=== PATIENT | female | born 1970 | race Caucasian/White ===

== ENCOUNTER 2018-08-31 17:20 | Emergency (ER) | payer OTHER ==
[2018-08-31] MEDS ORDERED: FENTANYL CITRATE INJ/PF 100 MCG/2 ML AMPUL IV ONE (17:44)
--- NOTE | 2018-08-31 17:45 | ER Document Report ---
ED Medical Screen (RME) - General Stated Complaint: ABDOMINAL PAIN Time Seen by Provider: 08/31/18 17:36 Primary Care Provider: CHARITY SILVA MD [EMERITUS] - Follow up as needed Mode of Arrival: Medic Information source: Patient, Emergency Med Personnel Notes: Patient presents to the emergency department with complaints of right lower quad abdominal pain that started yesterday. Reports numerous vomiting. Patient severely tender right lower quad still has her appendix. EMS reports when they picked her up and put her on the stretcher she passed out for the pain. Has been treated with fentanyl. Reports patient has had numerous abdominal surgeries. I have greeted and performed a rapid initial assessment of this patient. A comprehensive ED assessment and evaluation of the patient, analysis of test results and completion of the medical decision making process will be conducted by additional ED providers. Dictation of this chart was performed using voice recognition software; t herefore, there may be some unintended grammatical errors. TRAVEL OUTSIDE OF THE [place] IN LAST 30 DAYS: No - Related Data Allergies/Adverse Reactions: pregabalin [From Lyrica] Allergy (Intermediate, Verified 10/26/15 10:29) Hives prochlorperazine edisylate [From Compazine] Allergy (Intermediate, Verified 10/26/15 10:29) anxiety, rash prochlorperazine maleate [From Compazine] Allergy (Intermediate, Verified 10/26/15 10:29) anxiety, rash metoclopramide [From Reglan] Adverse Reaction (Severe, Verified 10/26/15 10:29) makes head feel like it will explode bee stings Allergy (Severe, Uncoded 10/26/15 10:29) Difficulty breathing Flu vaccine Allergy (Severe, Uncoded 10/26/15 10:29) Severe Sickness Past Medical History - Past Medical History Cardiac Medical History: Denies: Hx Coronary Artery Disease, Hx Heart Attack, Hx Hypertension Pulmonary Medical History: Reports: Hx Pneumonia Denies: Hx Asthma, Hx Bronchitis, Hx COPD Neurological Medical History: Reports: Hx Migraine. 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 Denies: Hx Pancreatitis Musculoskeltal Medical History: Reports Hx Arthritis - OA, Reports Hx Fibromyalgia Psychiatric Medical History: Reports: Hx Attention Deficit Hyperactivity Disorder, Hx Bipolar Disorder, Hx Depression, Hx Post Traumatic Stress Disorder - [place] War Vet., Hx Schizophrenia Traumatic Medical History: Reports: Hx Fractures - Left hand; ribs; RLE;RUE Past Surgical History: Reports: Hx Section, Hx Cholecystectomy, Hx Gynecologic Surgery - L ovary, Hx Hysterectomy, Hx Orthopedic Surgery - right leg/ankle fx, Hx Tonsillectomy - Immunizations Hx Diphtheria, Pertussis, Tetanus Vaccination: Yes - last 7 yrs Physical Exam - Vital signs Vitals: Temp Pulse Resp BP Pulse Ox 98.7 F 94 16 183/98 H 99 08/31/18 17:44 08/31/18 17:44 08/31/18 17:44 08/31/18 17:44 08/31/18 17:44 Course - Vital Signs Vital signs: Temp Pulse Resp BP Pulse Ox 98.7 F 94 16 183/98 H 99 08/31/18 17:44 08/31/18 17:44 08/31/18 17:44 08/31/18 17:44 08/31/18 17:44 - Laboratory Result Diagrams: 08/31/18 18:15 08/31/18 18:15 Doctor's Discharge - Discharge Referrals: CHARITY SILVA MD [EMERITUS] - Follow up as needed
--- NOTE | 2018-08-31 18:36 | RADIOLOGY REPORT (SQ) ---
EXAM DESCRIPTION: CT ABD/PELVIS NO ORAL OR IV COMPLETED DATE/TIME: 08/31/2018 6:08 pm REASON FOR STUDY: RLQ pain, eval appendix COMPARISON: 10/31/2013 TECHNIQUE: CT scan of the abdomen and pelvis performed without intravenous or oral contrast. Images reviewed with lung, soft tissue, and bone windows. Reconstructed coronal and sagittal MPR images revi ewed. All images stored on PACS. All CT scanners at this facility use dose modulation, iterative reconstruction, and/or weight based d osing when appropriate to reduce radiation dose to as low as reasonably achievable (ALARA). [facility]: Dose Right [facility]: CareDose [facility]: Dose Right [facility]: Teradose 4D [facility]: Smart [facility] RADIATION DOSE: CT Rad equipment meets quality standard of care and radiation dose reduction techniq ues were employed. CTDIvol: 15.5 mGy. DLP: 884 mGy-cm.mGy. LIMITATIONS: None. FINDINGS: LOWER CHEST: No significant findings. No nodules or infiltrates. NON-CONTRASTED LIVER, SPLEEN, ADRENALS: Evaluation limited by lack of IV contrast. No identified sign ificant masses. PANCREAS: No masses. No peripancreatic inflammatory changes. GALLBLADDER: Surgically absent. RIGHT KIDNEY AND URETER: No suspicious masses. Assessment limited by lack of IV contrast. No signif icant calcifications. No hydronephrosis or hydroureter. LEFT KIDNEY AND URETER: No suspicious masses. Assessment limited by lack of IV contrast. No signifi cant calcifications. No hydronephrosis or hydroureter. AORTA AND RETROPERITONEUM: No aneurysm. No retroperitoneal masses or adenopathy. BOWEL AND PERITONEAL CAVITY: No obvious masses or inflammatory changes. No free fluid. APPENDIX: Normal. PELVIS, BLADDER, AND ABDOMINAL WALL:No abnormal masses. No free fluid. Bladder normal. Status posthy sterectomy. The right ovary appears to be in a high lying right lower quadrant position. BONES: No significant findings. OTHER: No other significant finding. IMPRESSION: Normal appendix. No acute noncontrast CT findings to explain right lower quadrant pain. COMMENT: Quality ID # [id number]: Final reports with documentation of one or more dose reduction techniques (e.g., Automated exposure control, adjustment of the mA and/or kV according to patient size, use of iterative reconstruction technique) TECHNICAL DOCUMENTATION: JOB ID: [id number] [employer]- All Rights Reserved Reading location - IP/workstation name: [email or web address]
[2018-08-31] MEDS ORDERED: ONDANSETRON HCL INJ/PF 4 MG/2 ML SDV IV ONE (18:47)
[2018-08-31] MEDS ORDERED: KETOROLAC TROMETHAMINE INJ/PF 30 MG/1 ML SDV IV ONE (18:47)
[2018-08-31 18:48] LABS: ABSOLUTE BASOPHILS # (AUTO) 0.1 10^3/uL (0.0-0.2); ABSOLUTE EOSINOPHILS # (AUTO) 0.4 10^3/uL (0.0-0.6); ABSOLUTE LYMPHOCYTES (AUTO) 2.8 10^3/uL (0.5-4.7); ABSOLUTE MONOCYTES (AUTO) 0.5 10^3/uL (0.1-1.4); ABSOLUTE NEUT (AUTO) 3.8 10^3/uL (1.7-8.2); BASOPHILS % (AUTO) 1.2 % (0-2); EOSINOPHILS % (AUTO) 4.8 % (0-6); HEMOGLOBIN 12.6 g/dL (12.0-15.5); LYMPHOCYTES % (AUTO) 36.8 % (13-45); MEAN CORPUSCULAR HEMOGLOBIN 31.6 pg (27.0-33.4); MEAN CORPUSCULAR HGB CONC 34.1 g/dL (32.0-36.0); MEAN CORPUSCULAR VOLUME 93 fl (80-97); MONOCYTES % (AUTO) 7.2 % (3-13); PLATELET COUNT 288 10^3/uL (150-450); RED BLOOD COUNT 4.01 10^6/uL (3.72-5.28); RED CELL DISTRIBUTION WIDTH 13.4 % (11.5-14.0); TOTAL CELLS COUNTED % (AUTO) 100 %; WHITE BLOOD COUNT 7.5 10^3/uL (4.0-10.5)
[2018-08-31] MEDS ORDERED: DICYCLOMINE HCL INJ 20 MG/2 ML AMPULE IM ONE (18:48)
[2018-08-31 18:56] LABS: APPEARANCE,URINE CLEAR; BILIRUBIN,URINE NEGATIVE (NEGATIVE); COLOR,URINE STRAW; GLUCOSE, URINE NEGATIVE (NEGATIVE); KETONES,URINE NEGATIVE (NEGATIVE); LEUKOCYTE ESTERASE,URINE NEGATIVE (NEGATIVE); NITRITE,URINE NEGATIVE (NEGATIVE); PROTEIN,URINE NEGATIVE (NEGATIVE); URINE SPECIFIC GRAVITY 1.005; UROBILINOGEN,URINE NEGATIVE mg/dL (<2.0)
--- NOTE | 2018-08-31 19:06 | ER Document Report ---
ED General - General Chief Complaint: Abdominal Pain Stated Complaint: ABDOMINAL PAIN Time Seen by Provider: 08/31/18 17:36 Primary Care Provider: CHARITY SILVA MD [EMERITUS] - Follow up as needed Mode of Arrival: Medic TRAVEL OUTSIDE OF THE [place] IN LAST 30 DAYS: No - HPI Notes: Patient is a 48-year-old female who presents the emergency department for evaluation of periumbilical pain, with radiation into the right lower quadrant. She states is a sharp and stabbing pain. It started yesterday. She has had multiple episodes of nonbloody, nonbilious emesis. She also relates diarrhea. She states he had a temperature of over 101 yesterday. She denies any dysuria, hematuria, vaginal discharge. She rates her pain a 10 out of 10, states it was so bad she passed out from the pain earlier. - Related Data Allergies/Adverse Reactions: pregabalin [From Lyrica] Allergy (Intermediate, Verified 10/26/15 10:29) Hives prochlorperazine edisylate [From Compazine] Allergy (Intermediate, Verified 10/26/15 10:29) anxiety, rash prochlorperazine maleate [From Compazine] Allergy (Intermediate, Verified 10/26/15 10:29) anxiety, rash metoclopramide [From Reglan] Adverse Reaction (Severe, Verified 10/26/15 10:29) makes head feel like it will explode bee stings Allergy (Severe, Uncoded 10/26/15 10:29) Difficulty breathing Flu vaccine Allergy (Severe, Uncoded 10/26/15 10:29) Severe Sickness Past Medical History - General Information source: Patient, Emergency Med Personnel - Social History Smoking Status: Never Smoker Frequency of alcohol use: None Drug Abuse: None Family History: Reviewed & Not Pertinent Patient has suicidal ideation: No Patient has homicidal ideation: No - Past Medical History Cardiac Medical History: Denies: Hx Coronary Artery Disease, Hx Heart Attack, Hx Hypertension Pulmonary Medical History: Reports: Hx Pneumonia Denies: Hx Asthma, Hx Bronchitis, Hx COPD Neurological Medical History: Reports: Hx Migraine. Denies: Hx Cerebrovascular Accident, Hx Seizures Renal/ Medical History: Reports: Hx Kidney Stones, Hx Ovarian Cysts. 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 Denies: Hx Pancreatitis Musculoskeletal Medical History: Reports Hx Arthritis - OA, Reports Hx Fibromyalgia Psychiatric Medical History: Reports: Hx Attention Deficit Hyperactivity Disorder, Hx Bipolar Disorder, Hx Depression, Hx Post Traumatic Stress Disorder - [place] War Vet., Hx Schizophrenia Traumatic Medical History: Reports: Hx Fractures - Left hand; ribs; RLE;RUE Past Surgical History: Reports: Hx Section, Hx Cholecystectomy, Hx Gynecologic Surgery - L ovary, Hx Hysterectomy, Hx Orthopedic Surgery - right leg/ankle fx, Hx Tonsillectomy - Immunizations Hx Diphtheria, Pertussis, Tetanus Vaccination: Yes - last 7 yrs Review of Systems - Review of Systems Constitutional: See HPI EENT: No symptoms reported Cardiovascular: No symptoms reported Respiratory: No symptoms reported Gastrointestinal: See HPI Genitourinary: No symptoms reported Female Genitourinary: No symptoms reported Musculoskeletal: No symptoms reported Skin: No symptoms reported Neurological/Psychological: No symptoms reported Physical Exam - Vital signs Vitals: Temp Pulse Resp BP Pulse Ox 98.7 F 94 16 183/98 H 99 08/31/18 17:44 08/31/18 17:44 08/31/18 17:44 08/31/18 17:44 08/31/18 17:44 - Notes Notes: Vital signs reviewed, please refer to chart. Head is normocephalic, atraumatic. Pupils equal round, reactive to light. Neck is supple without meningismus. Heart is regular rate and rhythm. Lungs are clear to auscultation bilaterally. Abdomen is soft, moderate tenderness to palpation noted in the periumbilical region as well as in the right lower quadrant. No rebound or guarding. Normoactive bowel sounds. Extremities without cyanosis, clubbing. Posterior calves are nontender. Peripheral pulses are equal. Skin is warm and dry. Patient is awake, alert, neurological exam is nonfocal. Course - Re-evaluation Re-evalutation: 08/31/18 19:05 Patient presents to the emergency department for evaluation. Laboratory investigations and imaging were ordered through triage. CT scan is unremarkable for any acute findings. Given her history of fever, nausea, vomiting, diarrhea, I find it likely that this patient has a viral gastroenteritis. Her CBC is unremarkable. Urinalysis fails to reveal any signs of bleeding or infection. She is medicated with Toradol, Zofran, Bentyl. We will have her follow-up with primary care. 08/31/18 19:06 - Vital Signs Vital signs: Temp Pulse Resp BP Pulse Ox 98.7 F 94 16 183/98 H 99 08/31/18 17:44 08/31/18 17:44 08/31/18 17:44 08/31/18 17:44 08/31/18 17:44 - Laboratory Result Diagrams: 08/31/18 18:15 08/31/18 18:15 Laboratory results interpreted by me: 08/31/18 18:15 Chloride 109 H Discharge - Discharge Clinical Impression: Diarrhea Qualifiers: Diarrhea type: presumed infectious Qualified Code(s): R19.7 - Diarrhea, unspecified Nausea & vomiting Qualifiers: Vomiting Intractability: non-intractable Abdominal pain Qualifiers: Abdominal location: generalized Qualified Code(s): R10.84 - Generalized abdominal pain Condition: Stable Disposition: HOME, SELF-CARE Instructions: Abdominal Pain ([facility]), Antinausea Medication ([facility]), Antispasmodics ([facility]) Additional Instructions: Clear liquids, advance slowly to bland diet. Take medications as prescribed. Follow-up with your primary care physician in 1 to 2 days. Return to the emergency department with worsening or new concerning symptoms of any sort. Referrals: CHARITY SILVA MD [EMERITUS] - Follow up as needed
[2018-08-31 19:18] LABS: ALANINE AMINOTRANSFERASE 16 U/L (9-52); ALBUMIN 4.2 g/dL (3.5-5.0); ALKALINE PHOSPHATASE 82 U/L (38-126); ANION GAP 8 (5-19); ASPARTATE AMINO TRANSFERASE 20 U/L (14-36); BILIRUBIN,DIRECT 0.2 mg/dL (0.0-0.4); BILIRUBIN,TOTAL 0.2 mg/dL (0.2-1.3); BLOOD UREA NITROGEN 13 mg/dL (7-20); CALCIUM 9.1 mg/dL (8.4-10.2); CARBON DIOXIDE 26 mmol/L (22-30); CHLORIDE 109 mmol/L (98-107); GLUCOSE 91 mg/dL (75-110); POTASSIUM 3.8 mmol/L (3.6-5.0); SODIUM 142.5 mmol/L (137-145); TOTAL PROTEIN 7.5 g/dL (6.3-8.2)
[2018-08-31 20:27] VITALS: BP 140/84
== END 2018-08-31 20:28 | disposition home or self-care (01) ==
LOC: ER 17:20
DX: R10.33 Periumbilical pain (principal); R10.31 Right lower quadrant pain; R11.2 Nausea with vomiting, unspecified; R19.7 Diarrhea, unspecified; Z87.442 Personal history of urinary calculi; Z90.49 Acquired absence of other specified parts of digestive tract
CPT/HCPCS: 99284; 96372; 96374; 96375; 36415; 85025; 80053; 81001; 74176; J0500; J3010; J1885

== ENCOUNTER 2019-02-19 16:19 | Emergency (ER) | payer OTHER ==
[2019-02-19] MEDS: NORMAL SALINE 1000 ML 1,000 ML IV PRN ×2 (17:00→18:30)
[2019-02-19] MEDS ORDERED: PROMETHAZINE HCL INJ 25 MG/1 ML VIAL IV ONE (17:01)
--- NOTE | 2019-02-19 17:01 | ER Document Report ---
ED General - General Chief Complaint: Chest Pain Stated Complaint: CHEST PAIN Time Seen by Provider: 02/19/19 16:59 Primary Care Provider: GABE RODRIGUEZ DO [Primary Care Provider] - Follow up as needed Notes: This 48-year-old woman presents to the emergency department with a 3-day history of nausea vomiting and diarrhea. She has been using Phenergan for the nausea, Arabella to have symptoms today and went to the local urgent care. There she was found to be tachycardic with elevated blood pressure pain in her left lateral rib cage. He was given sublingual nitroglycerin x3 and aspirin and sent to the emergency department for further evaluation for possible CAD. Patient states that she has had occasional episodic chest discomfort, denies a history of hypertension, diabetes or cigarette use. She was concerned that she had a rotavirus and was not concerned about the chest discomfort. She has had vomitin g and diarrhea and has been trying to keep up with her fluids. She also notes low-grade fever and chills sweating at night. TRAVEL OUTSIDE OF THE [place] IN LAST 30 DAYS: No - Related Data Allergies/Adverse Reactions: birch Allergy (Intermediate, Verified 02/19/19 16:46) Swelling black pepper Allergy (Intermediate, Verified 02/19/19 16:46) Swelling pecan nut Allergy (Intermediate, Verified 02/19/19 16:46) Swelling pregabalin [From Lyrica] Allergy (Intermediate, Verified 02/19/19 16:46) Hives prochlorperazine edisylate [From Compazine] Allergy (Intermediate, Verified 02/19/19 16:46) anxiety, rash prochlorperazine maleate [From Compazine] Allergy (Intermediate, Verified 02/19/19 16:46) anxiety, rash metoclopramide [From Reglan] Adverse Reaction (Severe, Verified 02/19/19 16:46) makes head feel like it will explode bee stings Allergy (Severe, Uncoded 10/26/15 10:29) Difficulty breathing Flu vaccine Allergy (Severe, Uncoded 10/26/15 10:29) Severe Sickness hickory tree Allergy (Intermediate, Uncoded 02/19/19 16:46) Swelling Home Medications: Cymbalta, Abilify, Adderall, Belbuca, Prazosin, Phenergan, Klonopin Past Medical History - Social History Smoking Status: Never Smoker Chew tobacco use (# tins/day): No Frequency of alcohol use: Rare Drug Abuse: None Family History: Reviewed & Not Pertinent Patient has suicidal ideation: No Patient has homicidal ideation: No - Past Medical History Cardiac Medical History: Denies: Hx Coronary Artery Disease, Hx Heart Attack, Hx Hypertension Pulmonary Medical History: Reports: Hx Pneumonia Denies: Hx Asthma, Hx Bronchitis, Hx COPD Neurological Medical History: Reports: Hx Migraine. Denies: Hx Cerebrovascular Accident, Hx Seizures, Hx Parkinson's Disease Renal/ Medical History: Reports: Hx Kidney Stones, Hx Ovarian Cysts. 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 Denies: Hx Pancreatitis Musculoskeletal Medical History: Reports Hx Arthritis - OA, Reports Hx Fib romyalgia Psychiatric Medical History: Reports: Hx Attention Deficit Hyperactivity Disorder, Hx Bipolar Disorder, Hx Depression, Hx Post Traumatic Stress Disorder - [place] War Vet., Hx Schizophrenia Traumatic Medical History: Reports: Hx Fractures - Left hand; ribs; RLE;RUE Past Surgical History: Reports: Hx Section, Hx Cholecystectomy, Hx Gynecologic Surgery - L ovary, Hx Hysterectomy, Hx Orthopedic Surgery - right leg/ankle fx, Hx Tonsillectomy - Immunizations Hx Diphtheria, Pertussis, Tetanus Vaccination: Yes - last 7 yrs Physical Exam - Vital signs Vitals: Resp Pulse Ox 14 99 02/19/19 16:24 02/19/19 16:24 Course - Vital Signs Vital signs: Temp Pulse Resp BP Pulse Ox 98.6 F 15 160/103 H 99 02/19/19 16:29 02/19/19 20:01 02/19/19 20:01 02/19/19 20:01 - Laboratory Result Diagrams: 02/19/19 16:50 02/19/19 16:50 Laboratory results interpreted by me: 02/19/19 16:50 WBC 10.6 H Discharge - Discharge Clinical Impression: Non-cardiac chest pain, Gastroenteritis, Nausea vomiting and diarrhea, Dehydration Condition: Good Disposition: HOME, SELF-CARE Instructions: Intravenous (IV) Fluids ([facility]), Gastroenteritis (adult) ([facility]), Chronic Back Pain ([facility]) Additional Instructions: Use the Lidoderm patches for back pain Use dicyclomine for cramping abdominal pain Follow-up as needed Referrals: GABE RODRIGUEZ, [Primary Care Provider] - Follow up as needed
[2019-02-19] MEDS ORDERED: KETOROLAC TROMETHAMINE INJ/PF 30 MG/1 ML SDV IV ONE (17:03)
--- NOTE | 2019-02-19 17:03 | RADIOLOGY REPORT (SQ) ---
EXAM DESCRIPTION: CHEST SINGLE VIEW COMPLETED DATE/TIME: 02/19/2019 4:45 pm REASON FOR STUDY: chest pain COMPARISON: 05/01/2011 EXAM PARAMETERS: NUMBER OF VIEWS: One view. TECHNIQUE: Single frontal radiographic view of the chest acquired. RADIATION DOSE: NA LIMITATIONS: None. FINDINGS: LUNGS AND PLEURA: No opacities, masses or pneumothorax. No pleural effusion. MEDIASTINUM AND HILAR STRUCTURES: No masses. Contour normal. HEART AND VASCULAR STRUCTURES: Cardiomegaly. BONES: No acute findings. HARDWARE: None in the chest. OTHER: No other significant finding. IMPRESSION: Cardiomegaly without acute abnormality of the lungs in frontal projection. TECHNICAL DOCUMENTATION: JOB ID: [id number] [employer]- All Rights Reserved Reading location - IP/workstation name: [email or web address]
[2019-02-19 17:20] LABS: ABSOLUTE BASOPHILS # (AUTO) 0.1 10^3/uL (0.0-0.2); ABSOLUTE EOSINOPHILS # (AUTO) 0.2 10^3/uL (0.0-0.6); ABSOLUTE LYMPHOCYTES (AUTO) 2.3 10^3/uL (0.5-4.7); ABSOLUTE MONOCYTES (AUTO) 0.6 10^3/uL (0.1-1.4); ABSOLUTE NEUT (AUTO) 7.5 10^3/uL (1.7-8.2); EOSINOPHILS % (AUTO) 1.8 % (0-6); HEMATOCRIT 36.6 % (36.0-47.0); HEMOGLOBIN 12.4 g/dL (12.0-15.5); LYMPHOCYTES % (AUTO) 21.3 % (13-45); MEAN CORPUSCULAR HEMOGLOBIN 31.4 pg (27.0-33.4); MEAN CORPUSCULAR VOLUME 92 fl (80-97); MONOCYTES % (AUTO) 5.2 % (3-13); PLATELET COUNT 285 10^3/uL (150-450); RED BLOOD COUNT 3.97 10^6/uL (3.72-5.28); RED CELL DISTRIBUTION WIDTH 13.4 % (11.5-14.0); SEGMENTED NEUTROPHILS % (AUTO) 70.7 % (42-78); TOTAL CELLS COUNTED % (AUTO) 100 %; WHITE BLOOD COUNT 10.6 10^3/uL (4.0-10.5)
--- NOTE | 2019-02-19 17:25 | EKG REPORT ---
SEVERITY:- ABNORMAL ECG - SINUS TACHYCARDIA LEFT ANTERIOR FASCICULAR BLOCK : Confirmed by: Rupesh Herrmann MD 19-Feb-2019 17:25:13
[2019-02-19 17:41] LABS: CREATINE KINASE MB 0.27 ng/mL (<4.55)
[2019-02-19 17:49] LABS: ALBUMIN 4.2 g/dL (3.5-5.0); ALKALINE PHOSPHATASE 113 U/L (38-126); ANION GAP 11 (5-19); ASPARTATE AMINO TRANSFERASE 29 U/L (14-36); BILIRUBIN,DIRECT 0.1 mg/dL (0.0-0.4); BILIRUBIN,TOTAL 0.3 mg/dL (0.2-1.3); BLOOD UREA NITROGEN 13 mg/dL (7-20); CALCIUM 9.4 mg/dL (8.4-10.2); CARBON DIOXIDE 25 mmol/L (22-30); CHLORIDE 104 mmol/L (98-107); CREATINE KINASE 51 U/L (30-135); GLUCOSE 97 mg/dL (75-110); POTASSIUM 3.7 mmol/L (3.6-5.0); TOTAL PROTEIN 7.5 g/dL (6.3-8.2)
[2019-02-19 18:00] LABS: TROPONIN I < 0.012 ng/mL
[2019-02-19] MEDS ORDERED: DIPHENHYDRAMINE HCL 50 MG/ML VIAL IV ONE (19:27)
[2019-02-19 20:05] VITALS: BP 160/103
== END 2019-02-19 21:02 | disposition home or self-care (01) ==
LOC: ER 16:19
DX: K52.9 Noninfective gastroenteritis and colitis, unspecified (principal); E86.0 Dehydration; R07.89 Other chest pain; R11.2 Nausea with vomiting, unspecified; Z87.442 Personal history of urinary calculi; Z90.49 Acquired absence of other specified parts of digestive tract
CPT/HCPCS: 93005; 36415; 82553; 82550; 85025; 80053; 84484; 71045; 93010; J1200; J1885; J2550; J7030; 96361; 96374; 96375; 99285

== ENCOUNTER 2019-07-03 18:18 | Emergency (ER) | payer OTHER ==
--- NOTE | 2019-07-03 18:34 | ER Document Report ---
ED Medical Screen (RME) - General Chief Complaint: Abdominal Pain Stated Complaint: ABDOMINAL PAIN, LOW BACK PAIN Time Seen by Provider: 07/03/19 18:24 Primary Care Provider: TARA MONTOYA [Primary Care Provider] - Follow up as needed Notes: Patient is a 49-year-old female with a history of a hysterectomy who presents to the emergency department with lower abdominal pain. Patient states that she has a history of a cyst on her ovary. Patient states that this feels similar. She took Belbuca, ibuprofen and Tylenol this morning, but did not have any relief of her symptoms. Exam: Soft, mildly tender lower abdomen. Exam limited due to patient in wheelchair. I have greeted and performed a rapid initial assessment of this patient. A comprehensive ED assessment and evaluation of the patient, analysis of test results and completion of medical decision making process will be conducted by an additional ED providers. TRAVEL OUTSIDE OF THE [place] IN LAST 30 DAYS: No - Related Data Allergies/Adverse Reactions: birch Allergy (Intermediate, Verified 07/03/19 18:24) Swelling black pepper Allergy (Intermediate, Verified 07/03/19 18:24) Swelling pecan nut Allergy (Intermediate, Verified 07/03/19 18:24) Swelling pregabalin [From Lyrica] Allergy (Intermediate, Verified 07/03/19 18:24) Hives prochlorperazine edisylate [From Compazine] Allergy (Intermediate, Verified 07/03/19 18:24) anxiety, rash prochlorperazine maleate [From Compazine] Allergy (Intermediate, Verified 07/03/19 18:24) anxiety, rash metoclopramide [From Reglan] Adverse Reaction (Severe, Verified 07/03/19 18:24) makes head feel like it will explode bee stings Allergy (Severe, Uncoded 07/03/19 18:24) Difficulty breathing Flu vaccine Allergy (Severe, Uncoded 07/03/19 18:24) Severe Sickness hickory tree Allergy (Intermediate, Uncoded 07/03/19 18:24) Swelling Past Medical History - Social History Chew tobacco use (# tins/day): No Frequency of alcohol use: Rare Drug Abuse: None - Past Medical History Cardiac Medical History: Denies: Hx Coronary Artery Disease, Hx Heart Attack, Hx Hypertension Pulmonary Medical History: Reports: Hx Pneumonia Denies: Hx Asthma, Hx Bronchitis, Hx COPD Neurological Medical History: Reports: Hx Migraine. Denies: Hx Cerebrovascular Accident, Hx Seizures, Hx Parkinson's Disease Renal/ Medical History: Reports: Hx Kidney Stones, Hx Ovarian Cysts. 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 Denies: Hx Pancreatitis Musculoskeltal Medical History: Reports Hx Arthritis - OA, Reports Hx Fibromyalgia Psychiatric Medical History: Reports: Hx Attention Deficit Hyperactivity Disorder, Hx Bipolar Disorder, Hx Depression, Hx Post Traumatic Stress Disorder - [place] War Vet., Hx Schizophrenia Traumatic Medical History: Reports: Hx Fractures - Left hand; ribs; RLE;RUE Past Surgical History: Reports: Hx Section, Hx Cholecystectomy, Hx Gynecologic Surgery - L ovary, Hx Hysterectomy, Hx Orthopedic Surgery - right leg/ankle fx, Hx Tonsillectomy - Immunizations Hx Diphtheria, Pertussis, Tetanus Vaccination: Yes - last 7 yrs Physical Exam - Vital signs Vitals: Temp Pulse Resp BP Pulse Ox 98.2 F 86 18 177/90 H 95 07/03/19 18:25 07/03/19 18:25 07/03/19 18:25 07/03/19 18:25 07/03/19 18:25 Course - Vital Signs Vital signs: Temp Pulse Resp BP Pulse Ox 98.2 F 86 18 177/90 H 95 07/03/19 18:25 07/03/19 18:25 07/03/19 18:25 07/03/19 18:25 07/03/19 18:25 Doctor's Discharge - Discharge Referrals: TARA MONTOYA [Primary Care Provider] - Follow up as needed
[2019-07-03] MEDS ORDERED: HYDROMORPHONE HCL INJ/PF 2 MG/ML AMPULE IV ONE ×2 (19:28→21:02)
[2019-07-03 19:30] LABS: ABSOLUTE BASOPHILS # (AUTO) 0.1 10^3/uL (0.0-0.2); ABSOLUTE EOSINOPHILS # (AUTO) 0.3 10^3/uL (0.0-0.6); ABSOLUTE LYMPHOCYTES (AUTO) 3.1 10^3/uL (0.5-4.7); ABSOLUTE MONOCYTES (AUTO) 0.5 10^3/uL (0.1-1.4); ABSOLUTE NEUT (AUTO) 5.6 10^3/uL (1.7-8.2); BASOPHILS % (AUTO) 0.8 % (0-2); EOSINOPHILS % (AUTO) 3.1 % (0-6); HEMATOCRIT 35.8 % (36.0-47.0); HEMOGLOBIN 12.3 g/dL (12.0-15.5); LYMPHOCYTES % (AUTO) 32.3 % (13-45); MEAN CORPUSCULAR HEMOGLOBIN 31.8 pg (27.0-33.4); MEAN CORPUSCULAR HGB CONC 34.4 g/dL (32.0-36.0); MEAN CORPUSCULAR VOLUME 93 fl (80-97); MONOCYTES % (AUTO) 5.4 % (3-13); PLATELET COUNT 267 10^3/uL (150-450); RED BLOOD COUNT 3.87 10^6/uL (3.72-5.28); RED CELL DISTRIBUTION WIDTH 13.9 % (11.5-14.0); SEGMENTED NEUTROPHILS % (AUTO) 58.4 % (42-78); TOTAL CELLS COUNTED % (AUTO) 100 %; WHITE BLOOD COUNT 9.5 10^3/uL (4.0-10.5)
--- NOTE | 2019-07-03 19:37 | ER Document Report ---
ED General - General Chief Complaint: Abdominal Pain Stated Complaint: ABDOMINAL PAIN, LOW BACK PAIN Time Seen by Provider: 07/03/19 18:24 Primary Care Provider: TARA MONTOYA [Primary Care Provider] - Follow up as needed Notes: 49-year-old female presents emergency department complaining of acute left lower quadrant abdominal pain that started yesterday. States that is so sharp stabbing pain that radiates to her back and feels quite similar to a hemorrhagic cyst she had to have removed along with her right ovary in the past. Patient does note that 2 days ago she had intercourse and developed some ble eding but that bleeding has stopped today. It was heavy enough to need to use a pad. Patient did have a hysterectomy back in 1999 and due to precancerous changes in her uterus and they removed her cervix as well at that time. Has not had any vaginal bleeding since then. TRAVEL OUTSIDE OF THE [place] IN LAST 30 DAYS: No - Related Data Allergies/Adverse Reactions: birch Allergy (Intermediate, Verified 07/03/19 18:24) Swelling black pepper Allergy (Intermediate, Verified 07/03/19 18:24) Swelling pecan nut Allergy (Intermediate, Verified 07/03/19 18:24) Swelling pregabalin [From Lyrica] Allergy (Intermediate, Verified 07/03/19 18:24) Hives prochlorperazine edisylate [From Compazine] Allergy (Intermediate, Verified 07/03/19 18:24) anxiety, rash prochlorperazine maleate [From Compazine] Allergy (Intermediate, Verified 08/16 18:24) anxiety, rash metoclopramide [From Reglan] Adverse Reaction (Severe, Verified 07/03/19 18:24) makes head feel like it will explode bee stings Allergy (Severe, Uncoded 07/03/19 18:24) Difficulty breathing Flu vaccine Allergy (Severe, Uncoded 07/03/19 18:24) Severe Sickness hickory tree Allergy (Intermediate, Uncoded 07/03/19 18:24) Swelling Past Medical History - General Information source: Patient - Social History Smoking Status: Never Smoker Chew tobacco use (# tins/day): No Frequency of alcohol use: Rare Drug Abuse: None Family History: Reviewed & Not Pertinent Patient has suicidal ideation: No Patient has homicidal ideation: No - Past Medical History Cardiac Medical History: Denies: Hx Coronary Artery Disease, Hx Heart Attack, Hx Hypertension Pulmonary Medical History: Reports: Hx Pneumonia Denies: Hx Asthma, Hx Bronchitis, Hx COPD Neurological Medical History: Reports: Hx Migraine. Denies: Hx Cerebrovascular Accident, Hx Seizures, Hx Parkinson's Disease Renal/ Medical History: Reports: Hx Kidney Stones, Hx Ovarian Cysts. 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 Denies: Hx Pancreatitis Musculoskeletal Medical History: Reports Hx Arthritis - OA, Reports Hx Fibromyalgia Psychiatric Medical History: Reports: Hx Attention Deficit Hyperactivity Disorder, Hx Bipolar Disorder, Hx Depression, Hx Post Traumatic Stress Disorder - [place] War [place]et., Hx Schizophrenia Traumatic Medical History: Reports: Hx Fractures - Left hand; ribs; RLE;RUE Past Surgical History: Reports: Hx Section, Hx Cholecystectomy, Hx Gynecologic Surgery - L ovary, Hx Hysterectomy, Hx Orthopedic Surgery - right leg/ankle fx, Hx Tonsillectomy - Immunizations Hx Diphtheria, Pertussis, Tetanus Vaccination: Yes - last 7 yrs Review of Systems - Review of Systems Constitutional: No symptoms reported Gastrointestinal: See HPI Female Genitourinary: See HPI Musculoskeletal: See HPI -: Yes All other systems reviewed and negative Physical Exam - Vital signs Vitals: Temp Pulse Resp BP Pulse Ox 98.2 F 86 18 177/90 H 95 07/03/19 18:25 07/03/19 18:25 07/03/19 18:25 07/03/19 18:25 07/03/19 18:25 Interpretation: Hypertensive - Admits baseline hypertension and whitecoat hypertension. - Notes Notes: GENERAL: Alert, interacts well. Mildly anxious. HEAD: Normocephalic, atraumatic EYES: Pupils equal, round and reactive to light, extraocular movements intact. ENT: Oral mucosa moist, tongue midline. NECK: Full range of motion, supple, trachea midline. LUNGS: Clear to auscultation bilaterally, no wheezes, rales or rhonchi, no respiratory distress. HEART: Regular rate and rhythm, no murmurs, gallops, rubs. ABDOMEN: Soft, right lower quadrant, suprapubic and left lower quadrant tenderness to palpation, worst in the left lower quadrant, no guarding, rigidity, rebounding, bowel sounds present in all 4 quadrants. PELVIC: Cervix absent, surgical site well-healed, no evidence of bleeding, no signs of trauma, no scab. EXTREMITIES: Moves all 4 extremities spontaneously, no edema, radial and dorsalis pedis pulses 2/4 bilaterally. No cyanosis. NEUROLOGICAL: Alert and oriented x3, normal speech. PSYCH: Mildly anxious. SKIN: Warm, Dry, normal turgor, no rashes or lesions noted. Course - Re-evaluation Re-evalutation: 07/03/19 22:21 CBC unremarkable, CMP grossly unremarkable, urinalysis shows moderate blood, trace leukocyte esterase but only 14 WBCs and 10 RBCs. At this point doubt urinary tract infection or kidney stone although there could be a small one that did not show up on the contrasted CAT scan. Discussed with patient that this may be the cause of her pain though again I find it unlikely and even if there is a kidney stone no intervention would be required at this point. Ultrasound did not show hemorrhagic cyst, pelvic examination did not show tumor in the vaginal vault or any source of bleeding, CT scan of the abdomen pelvis was ordered to look for infection or other source of pain that did not reveal any source of pain. At this point patient will be discharged to home. Discussed with patient that I do not have a source for her pain however it is possible that she did have a cyst that ruptured during intercourse the other day and this is what caused some of her pain and possibly her vaginal bleeding. Patient will be given for Percocet to help manage her pain over the next 24 hours, she is under strict return precautions that if after 24 hours she is still enough pain that she requires narcotic level pain medication she is to return for reassessment. - Vital Signs Vital signs: Temp Pulse Resp BP Pulse Ox 98.2 F 86 18 177/90 H 95 07/03/19 18:25 07/03/19 18:25 07/03/19 18:25 07/03/19 18:25 07/03/19 18:25 - Laboratory Result Diagrams: 07/03/19 18:40 07/03/19 18:40 Laboratory results interpreted by me: 07/03/19 07/03/19 07/03/19 18:40 18:40 21:00 Hct 35.8 L Carbon Dioxide 31 H BUN 24 H Urine Blood MODERATE H Ur Leukocyte Esterase TRACE H Discharge - Discharge Clinical Impression: Left lower quadrant abdominal pain, Vaginal bleeding Condition: Stable Disposition: HOME, SELF-CARE Additional Instructions: I do not know exactly what is causing your abdominal pain today. We did not find any sign of a cyst and I did not find any cause for your vaginal bleeding. Today your pelvic exam was normal for somebody who has had a hysterectomy including removal of the cervix. I want you to follow-up with your [facility] [employer] to further address vaginal bleeding after you have had a hysterectomy over 5 years ago. I did not find any sign of infection in your abdomen today. It is possible that we missed a very small kidney stone that did not show up because we used contrast on the CAT scan today. If your pain worsens please return to the emergency department. Prescriptions: Oxycodone HCl/Acetaminophen [Percocet 5-325 mg Tablet] 1 tab PO Q6HP PRN #4 tab PRN Reason: Referrals: TARA MONTOYA [Primary Care Provider] - Follow up as needed
[2019-07-03 19:47] LABS: ALBUMIN 4.3 g/dL (3.5-5.0); ALKALINE PHOSPHATASE 93 U/L (38-126); ANION GAP 6 (5-19); ASPARTATE AMINO TRANSFERASE 23 U/L (14-36); BILIRUBIN,DIRECT 0.2 mg/dL (0.0-0.4); BILIRUBIN,TOTAL 0.2 mg/dL (0.2-1.3); BLOOD UREA NITROGEN 24 mg/dL (7-20); CARBON DIOXIDE 31 mmol/L (22-30); CHLORIDE 101 mmol/L (98-107); GLUCOSE 101 mg/dL (75-110); POTASSIUM 4.4 mmol/L (3.6-5.0)
--- NOTE | 2019-07-03 20:26 | RADIOLOGY REPORT (SQ) ---
EXAM DESCRIPTION: US PELVIS TRANSVAGINAL COMPLETED DATE/TME: 07/03/2019 7:08 PM CLINICAL HISTORY: pelvic pain COMPARISON: None. FINDINGS: Transvaginal images of the pelvis were submitted. History indicates prior total hysterectomy. There is no discrete abnormal fluid collection or mass noted in the submitted images. IMPRESSION: No acute abnormalities.
[2019-07-03] MEDS ORDERED: ONDANSETRON HCL INJ/PF 4 MG/2 ML SDV IV ONE (21:02)
[2019-07-03 21:26] LABS: APPEARANCE,URINE CLEAR; BILIRUBIN,URINE NEGATIVE (NEGATIVE); COLOR,URINE YELLOW; GLUCOSE, URINE NEGATIVE (NEGATIVE); KETONES,URINE NEGATIVE (NEGATIVE); LEUKOCYTE ESTERASE,URINE TRACE (NEGATIVE); NITRITE,URINE NEGATIVE (NEGATIVE); PROTEIN,URINE NEGATIVE (NEGATIVE); UROBILINOGEN,URINE NEGATIVE mg/dL (<2.0)
--- NOTE | 2019-07-03 22:02 | RADIOLOGY REPORT (SQ) ---
EXAM DESCRIPTION: Contrast-enhanced CT scan of the abdomen and pelvis. CLINICAL HISTORY: 49 years Female; LLQ pain, rad to back, ?tics TECHNIQUE: CT of the abdomen and pelvis with intravenous contrast. Delayed imaging of the abdomen and pelvis. All CT scans at this facility use dose modulation, iterative reconstruction, and/or weight based dosing when appropriate to reduce radiation dose to as low as reasonably achievable. This exam was performed according to our department optimization program which includes automated exposure control, adjustment of the mA and/or kv according to patient size and/or use of iterative reconstruction technique. COMPARISON: Unenhanced CT scan of the abdomen and pelvis August 31, 2018 FINDINGS: Lower chest:The lung bases are clear. The visualized portion of heart and great vessels are normal. Abdomen: Liver and biliary tree: Mild fatty infiltration of the liver. The gallbladder surgically absent. No biliary dilatation. Portal vein and hepatic veins are patent. Pancreas: Normal Spleen:Within normal limits Kidneys: Kidneys are normal in size, shape and position. No stones. No mass or hydronephrosis. Symmetric renal enhancement. Adrenal glands:Within normal limits Vascular structures: Minimal scattered vascular plaque in the aorta. The visceral vessels are patent. Retroperitoneum: Vascular clips are seen at the pelvic inlet bilaterally. This is along the iliac vessels. Abdominal wall: Edema is present involving the anterior abdominal wall of uncertain significance. GI: Moderate stool is seen in the colon. No evidence of diverticula. No focal bowel wall thickening or inflammation. Scattered fluid is seen in the small bowel which is not distended. The bowel gas pattern is overall nonspecific. Appendix: The appendix appears normal. General: No free air. No free fluid Pelvis: Lymph nodes: No mass or lymphadenopathy Bladder: The bladder is mostly empty. It may be thick-walled. Pelvis: Uterus is not seen. No adnexal mass. Bones: No acute bone findings. IMPRESSION: 1. Mild fatty infiltration of the liver. 2. No acute process is seen in the abdomen or pelvis. No evidence of diverticulitis. The bowel gas pattern is nonspecific.
[2019-07-03 23:20] VITALS: BP 136/88
== END 2019-07-03 23:20 | disposition home or self-care (01) ==
LOC: ER 18:18
DX: R10.32 Left lower quadrant pain (principal); N93.8 Other specified abnormal uterine and vaginal bleeding; Z90.710 Acquired absence of both cervix and uterus; Z90.49 Acquired absence of other specified parts of digestive tract; Z87.442 Personal history of urinary calculi
CPT/HCPCS: 99284; 96374; 36415; 85025; 80053; 81001; 76830; 93976; 74177; J1170; J2405

== ENCOUNTER 2019-12-18 05:30 | Emergency (ER) | payer OTHER ==
[2019-12-18] MEDS ORDERED: PROMETHAZINE HCL INJ 50 MG/1 ML VIAL IM PRN (07:12)
[2019-12-18] MEDS ORDERED: NORMAL SALINE 1000 ML 1,000 ML IV ONE (07:13)
[2019-12-18] MEDS ORDERED: HYDROMORPHONE HCL INJ/PF 2 MG/ML AMPULE IV ONE (07:14)
[2019-12-18] MEDS ORDERED: DIPHENHYDRAMINE HCL 50 MG/ML VIAL IV ONE (07:16)
[2019-12-18 08:05] LABS: ABSOLUTE BASOPHILS # (AUTO) 0.1 10^3/uL (0.0-0.2); ABSOLUTE EOSINOPHILS # (AUTO) 0.2 10^3/uL (0.0-0.6); ABSOLUTE LYMPHOCYTES (AUTO) 2.2 10^3/uL (0.5-4.7); ABSOLUTE MONOCYTES (AUTO) 0.6 10^3/uL (0.1-1.4); ABSOLUTE NEUT (AUTO) 5.1 10^3/uL (1.7-8.2); EOSINOPHILS % (AUTO) 2.1 % (0-6); HEMATOCRIT 36.8 % (36.0-47.0); LYMPHOCYTES % (AUTO) 27.6 % (13-45); MEAN CORPUSCULAR HEMOGLOBIN 32.7 pg (27.0-33.4); MEAN CORPUSCULAR HGB CONC 35.4 g/dL (32.0-36.0); MEAN CORPUSCULAR VOLUME 92 fl (80-97); MONOCYTES % (AUTO) 6.8 % (3-13); PLATELET COUNT 265 10^3/uL (150-450); RED BLOOD COUNT 3.98 10^6/uL (3.72-5.28); RED CELL DISTRIBUTION WIDTH 13.5 % (11.5-14.0); SEGMENTED NEUTROPHILS % (AUTO) 62.5 % (42-78); TOTAL CELLS COUNTED % (AUTO) 100 %; WHITE BLOOD COUNT 8.1 10^3/uL (4.0-10.5)
[2019-12-18 08:19] LABS: ALBUMIN 4.3 g/dL (3.5-5.0); ALKALINE PHOSPHATASE 103 U/L (38-126); ANION GAP 7 (5-19); APPEARANCE,URINE CLEAR; ASPARTATE AMINO TRANSFERASE 31 U/L (14-36); BILIRUBIN,DIRECT 0.3 mg/dL (0.0-0.4); BILIRUBIN,TOTAL 0.6 mg/dL (0.2-1.3); BILIRUBIN,URINE NEGATIVE (NEGATIVE); BLOOD UREA NITROGEN 15 mg/dL (7-20); CARBON DIOXIDE 28 mmol/L (22-30); CHLORIDE 104 mmol/L (98-107); COLOR,URINE YELLOW; GLUCOSE 110 mg/dL (75-110); GLUCOSE, URINE NEGATIVE (NEGATIVE); KETONES,URINE NEGATIVE (NEGATIVE); LEUKOCYTE ESTERASE,URINE SMALL (NEGATIVE); NITRITE,URINE NEGATIVE (NEGATIVE); POTASSIUM 4.3 mmol/L (3.6-5.0); PROTEIN,URINE NEGATIVE (NEGATIVE); TOTAL PROTEIN 7.6 g/dL (6.3-8.2); URINE SPECIFIC GRAVITY 1.014; UROBILINOGEN,URINE NEGATIVE mg/dL (<2.0)
--- NOTE | 2019-12-18 10:09 | RADIOLOGY REPORT (SQ) ---
EXAM DESCRIPTION: CT ABD/PELVIS WITH IV ORAL IMAGES COMPLETED DATE/TIME: 12/18/2019 8:50 am REASON FOR STUDY: abd pain RLQ COMPARISON: 07/03/2019 TECHNIQUE: CT scan of the abdomen and pelvis performed using helical scanning technique with dynamic intravenous contrast injection. No oral contrast. Images reviewed with lung, soft tissue, and bone windows. Reconstructed coronal and sagittal MPR images reviewed. Delayed images for evaluation of the urinary system also acquired. All images stored on PACS. All CT scanners at this facility use dose modulation, iterative reconstruction, and/or weight based d osing when appropriate to reduce radiation dose to as low as reasonably achievable (ALARA). [facility]: Dose Right [facility]: CareDose [facility]: Dose Right [facility]: Teradose 4D [facility]: Aligned [employer] CONTRAST TYPE AND DOSE: contrast/concentration: Isovue mmol/ml; Total Contrast Delivered: 100.0 ml; Total Saline Delivered: 72.0 ml RENAL FUNCTION: GFR > 60. RADIATION DOSE: CT Rad equipment meets quality standard of care and radiation dose reduction techniq ues were employed. CTDIvol: 17.8 - 21.1 mGy. DLP: 2025 mGy-cm.. LIMITATIONS: None. FINDINGS: LOWER CHEST: No significant findings. No nodules or infiltrates. LIVER: The liver is upper limits of normal in size measuring 20.4 cm craniocaudal at the midclavicula r line. Normal contour. Moderate diffuse hepatic steatosis. No focal hepatic mass. Hepatic and po rtal veins are patent. No biliary ductal dilation. SPLEEN: Normal size. No focal lesions. PANCREAS: No masses. No significant calcifications. No adjacent inflammation or peripancreatic fluid collections. Pancreatic duct not dilated. GALLBLADDER: Surgically absent. ADRENAL GLANDS: No significant masses or asymmetry. RIGHT KIDNEY AND URETER: No solid masses. No significant calcifications. No hydronephrosis or hyd roureter. LEFT KIDNEY AND URETER: No solid masses. No significant calcifications. No hydronephrosis or hydr oureter. AORTA AND VESSELS: No aneurysm. No dissection. Renal arteries, SMA, celiac without stenosis. RETROPERITONEUM: No retroperitoneal adenopathy, hemorrhage or masses. BOWEL AND PERITONEAL CAVITY: No masses or inflammatory changes. No free fluid or peritoneal masses. APPENDIX: Normal. PELVIS: Status post hysterectomy. No adnexal mass. Urinary bladder has normal contour. Calcified p elvic phleboliths. ABDOMINAL WALL: No masses. No hernias. BONES: No significant or acute findings. OTHER: No other significant finding. IMPRESSION: 1. No acute abnormality in the abdomen or pelvis to explain the patient's symptoms. Appendix is norm al. 2. Mild hepatomegaly with moderate hepatic steatosis. TECHNICAL DOCUMENTATION: JOB ID: [id number] Quality ID # [id number]: Final reports with documentation of one or more dose reduction techniques (e.g., Au tomated exposure control, adjustment of the mA and/or kV according to patient size, use of iterative reconstruction technique) 2010 [employer]- All Rights Reserved Reading location - IP/workstation name: [email or web address]
--- NOTE | 2019-12-18 11:39 | ER Document Report ---
Entered by CHANELL ZHANG SCRIBE 12/18/19 0646 Acting as scribe for:TRACY SALINAS MD ED GI/ - General Chief Complaint: Abdominal Pain Stated Complaint: ABDOMINAL PAIN Primary Care Provider: TARA MONTOYA [NO LOCAL MD] - Follow up as needed Mode of Arrival: Ambulatory Information source: Patient Notes: This 49 year old female patient presents to the ED today with complaints of periumbilical pain that radiates to her right flank for the past x5 days. Patient states that pain became progressively worse since onset, so she decided to come to the ED for evaluation. She reports associated nausea and "dry heaving." She states that she experienced the same type of pain in the past when she had a "hematoma" on her peritoneum that had to be drained over x10 years ago. She mentions a history of chronic constipation due to IBS and that she is on Linsess and Belbuca, a narcotic pain medication she takes for MS. TRAVEL OUTSIDE OF THE [place] IN LAST 30 DAYS: No - Related Data Allergies/Adverse Reactions: birch Allergy (Intermediate, Verified 07/03/19 18:24) Swelling black pepper Allergy (Intermediate, Verified 07/03/19 18:24) Swelling pecan nut Allergy (Intermediate, Verified 07/03/19 18:24) Swelling pregabalin [From Lyrica] Allergy (Intermediate, Verified 07/03/19 18:24) Hives prochlorperazine edisylate [From Compazine] Allergy (Intermediate, Verified 07/03/19 18:24) anxiety, rash prochlorperazine maleate [From Compazine] Allergy (Intermediate, Verified 07/03/19 18:24) anxiety, rash metoclopramide [From Reglan] Adverse Reaction (Severe, Verified 07/03/19 18:24) makes head feel like it will explode bee stings Allergy (Severe, Uncoded 07/03/19 18:24) Difficulty breathing Flu vaccine Allergy (Severe, Uncoded 07/03/19 18:24) Severe Sickness hickory tree Allergy (Intermediate, Uncoded 07/03/19 18:24) Swelling Home Medications: Belbuca. Aripiprazole. Prazosin. Dextroamp-amphet. trazadone. atenolo. Duloxetine hydrochloride. Tizanidine. clonazepam Past Medical History - General Information source: Patient, [facility] Records - Social History Smoking Status: Never Smoker Cigarette use (# per day): No Chew tobacco use (# tins/day): No Smoking Education Provided: No Frequency of alcohol use: None Drug Abuse: None Lives with: Spouse/Significant other Family History: Reviewed & Not Pertinent Patient has suicidal ideation: No Patient has homicidal ideation: No Pulmonary Medical History: Reports: Hx Pneumonia Neurological Medical History: Reports: Hx Migraine Renal/ Medical History: Reports: Hx Kidney Stones, Hx Ovarian Cysts Malignancy Medical History: Reports: 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 GI Medical History: Reports: Hx Gastroesophageal Reflux Disease, Hx Hiatal He rnia, Hx Irritable Bowel Musculoskeletal Medical History: Reports Hx Arthritis - OA, Reports Hx Fibromyalgia, Reports Hx Multiple Sclerosis Psychiatric Medical History: Reports: Hx Attention Deficit Hyperactivity Disorder, Hx Bipolar Disorder, Hx Depression, Hx Post Traumatic Stress Disorder - [place] War Vet., Hx Schizophrenia Traumatic Medical History: Reports: Hx Fractures - Left hand; ribs; RLE;RUE Past Surgical History: Reports: Hx Section, Hx Cholecystectomy, Hx Gynecologic Surgery - L ovary, Hx Hysterectomy, Hx Orthopedic Surgery - right leg/ankle fx, Hx Tonsillectomy - Immunizations Hx Diphtheria, Pertussis, Tetanus Vaccination: Yes - last 7 yrs Review of Systems - Review of Systems Constitutional: See HPI. denies: Chills, Fever EENT: No symptoms reported Cardiovascular: No symptoms reported Respiratory: No symptoms reported Gastrointestinal: See HPI, Abdomen distended, Abdominal pain, Nausea, Constipation. denies: Diarrhea, Vomiting Genitourinary: See HPI, Flank pain Female Genitourinary: No symptoms reported Musculoskeletal: No symptoms reported Skin: No symptoms reported Hematologic/Lymphatic: No symptoms reported Neurological/Psychological: No symptoms reported -: Yes All other systems reviewed and negative Physical Exam - Vital signs Vitals: Temp Pulse Resp BP Pulse Ox 98.5 F 92 17 158/101 H 99 12/18/19 05:44 12/18/19 05:44 12/18/19 05:44 12/18/19 05:44 12/18/19 05:44 - General General appearance: Appears well, Alert - HEENT Head: Normocephalic, Atraumatic Eyes: Normal Pupils: PERRL - Respiratory Respiratory status: No respiratory distress Chest status: Nontender Breath sounds: Normal Chest palpation: Normal - Cardiovascular Rhythm: Regular Heart sounds: Normal auscultation, S1 appreciated, S2 appreciated Murmur: No Friction rub: No Gallop: None auscultated - Abdominal Inspection: Normal Distension: No distension Bowel sounds: Normal Tenderness: Tender - RLQ tenderness to palpation, Guarding, Other - Abdomen soft Organomegaly: No organomegaly - Back Back: Normal, Nontender - Extremities General upper extremity: Normal inspection General lower extremity: Normal inspection. No: Edema - Neurological Neuro grossly intact: Yes Orientation: AAOx4 Mala Coma Scale Eye Opening: Spontaneous [place] Coma Scale Verbal: Oriented [place] Coma Scale Motor: Obeys Commands [place] Coma Scale Total: 15 - Psychological Associated symptoms: Normal affect, Normal mood - Skin Skin Temperature: Warm Skin Moisture: Dry Skin Color: Normal Course - Re-evaluation Re-evalutation: 12/18/19 11:35 Patient resting comfortably at this time not having any abdominal pain. Discussed with patient her results of her CT scan and her laboratory work explained the patient her CT scan did not disclose any abnormality that would cause the pain that she was describing. - Vital Signs Vital signs: Temp Pulse Resp BP Pulse Ox 98.5 F 92 17 158/101 H 99 12/18/19 05:44 12/18/19 05:44 12/18/19 05:44 12/18/19 05:44 12/18/19 05:44 12/18/19 11:35 Vital signs as above blood pressure is 158/101 this morning patient has a history of hypertension and is on blood pressure medicines. Patient reports that she is scheduled for an appointment with her primary care physician to discuss her blood pressure management. - Laboratory Result Diagrams: 12/18/19 07:50 12/18/19 07:50 Laboratory results interpreted by me: 12/18/19 07:50 Urine Blood SMALL H Ur Leukocyte Esterase SMALL H Laboratories essentially normal except for the small amount of leukocyte esterase in urine blood. Patient denies any urinary symptoms that would suggest infection. - Diagnostic Test Radiology reviewed: Image reviewed, Reports reviewed Radiology results interpreted by me: 12/18/19 11:36 Abdomen/Pelvis CT 12/18/19 00:00 IMPRESSION: 1. No acute abnormality in the abdomen or pelvis to explain the patient's symptoms. Appendix is normal. 2. Mild hepatomegaly with moderate hepatic steatosis. CT scan of abdomen and pelvis pelvis with oral and IV contrast showed a normal appendix and no other acute abnormality. Patient does have hepatomegaly and moderate hepatic steatosis. Discharge - Discharge Clinical Impression: Abdominal pain Condition: Stable Disposition: HOME, SELF-CARE Instructions: Abdominal Pain ([facility]) Additional Instructions: Abdominal Pain There are many causes of abdominal pain. Pain can mean a serious problem requiring surgery (such as appendicitis). It can also be an innocent problem that goes away on its own (such as a viral infection). Often, time must pass to determine the cause of pain. The physician does not feel that hospitalization is necessary, at present. Things may change within the next 24 hours. Call the doctor or come back for re- examination if any problems occur, such as: (1) Pain that becomes more severe, steady, or becomes concentrated in one specific area. Also, pain that is more severe with movement or coughing. (2) Vomiting that persists or becomes more frequent. (3) Blood in the vomitus, urine, or bowel movements. Blood in the stool may have a tarry or black appearance. (4) Shaking chills or fever greater than 100 degrees F. (5) The abdomen becomes more distended or swollen. (6) Bowel movements cease. (7) Failure to improve as expected. Continue your usual medications. As you discussed you have an appointment with your primary care provider to discuss your blood pressure management. Forms: Elevated Blood Pressure Referrals: TARA MONTOYA [NO LOCAL MD] - Follow up as needed I personally performed the services described in the documentation, reviewed and edited the documentation which was dictated to the scribe in my presence, and it accurately records my words and actions.
[2019-12-18 12:12] VITALS: BP 176/106
== END 2019-12-18 12:15 | disposition home or self-care (01) ==
LOC: ER 05:30
DX: K58.1 Irritable bowel syndrome with constipation (principal); R10.33 Periumbilical pain; R10.814 Left lower quadrant abdominal tenderness; R11.0 Nausea; K76.0 Fatty (change of) liver, not elsewhere classified; I10 Essential (primary) hypertension; F31.9 Bipolar disorder, unspecified; F20.9 Schizophrenia, unspecified; F90.9 Attention-deficit hyperactivity disorder, unspecified type; G35 Multiple sclerosis; Z79.899 Other long term (current) drug therapy; Z79.891 Long term (current) use of opiate analgesic; Z91.018 Allergy to other foods; Z91.048 Other nonmedicinal substance allergy status; Z88.6 Allergy status to analgesic agent; Z88.8 Allergy status to other drugs, medicaments and biological substances; Z91.030 Bee allergy status; Z88.7 Allergy status to serum and vaccine
CPT/HCPCS: 99285; 96372; 96361; 96374; 96375; 36415; 83605; 83690; 85025; 80053; 81001; 74177; J1200; J1170; J2550; J7030